=== PATIENT | male | born 1950 | race Caucasian/White ===

== ENCOUNTER 2019-03-14 10:10 | Outpatient (CLI) | payer OTHER ==
[~2019-03-14 10:10] MED LIST: ALTACE10 MG; APRESOLINE 10MG10 MG; CARVEDILOL 25 MG; LEVOXYL75 MCG; PNEU16DI2
== END 2019-03-14 10:13 | disposition home or self-care (01) ==
LOC: RAD 10:10
DX: C61 Malignant neoplasm of prostate (principal)

== ENCOUNTER 2019-03-25 10:45 | Inpatient (IN) | payer OTHER ==
[2019-03-30] MEDS ORDERED: CARVEDILOL25 MG PO (07:53)
== END 2019-04-01 11:01 | disposition home or self-care (01) | DRG 708 ==
LOC: EDSTATUS 10:45 → ADM 10:45 → SURH 03-30 05:23 → O/R 03-30 05:23 → SURH 03-30 10:15
PROVIDERS: ADMIT Urology
PROC: 0VT00ZZ Resection of Prostate, Open Approach (ICD-10-PCS; 2019-03-30)
PROC: 0VT30ZZ Resection of Bilateral Seminal Vesicles, Open Approach (ICD-10-PCS; 2019-03-30)
PROC: 07TC0ZZ Resection of Pelvis Lymphatic, Open Approach (ICD-10-PCS; principal; 2019-03-30 10:15)
DX: C61 Malignant neoplasm of prostate (principal); R97.21 Rising PSA following treatment for malignant neoplasm of prostate; N49.0 Inflammatory disorders of seminal vesicle; I10 Essential (primary) hypertension

== ENCOUNTER 2019-04-01 23:41 | Emergency (ER) | payer OTHER ==
[~2019-04-01] VITALS: Ht 172.7 cm; Wt 65.3 kg
[~2019-04-01 23:41] MED LIST changes: +CARVEDILOL25 MG PO
== END 2019-04-02 03:01 | disposition home or self-care (01) ==
LOC: ER 23:41
DX: T83.091A Other mechanical complication of indwelling urethral catheter, initial encounter (principal)

== ENCOUNTER 2019-04-10 09:56 | Outpatient (CLI) | payer OTHER | END 2019-04-10 10:03 | disposition home or self-care (01) | LOC: LAB 09:56 | DX: C61 Malignant neoplasm of prostate (principal); N30.00 Acute cystitis without hematuria ==